=== PATIENT | male | born 1985 | race Caucasian/White ===

== ENCOUNTER → 2021-07-08 08:09 | Outpatient (CLI) | payer OTHER, SELFPAY ==
[2021-07-08 08:22] LABS: Coronavirus 19, PCR Not Detected (NotDetected); Influenza A, PCR Not Detected (NotDetected); Influenza B, PCR Not Detected (NotDetected)
== END ==
PROVIDERS: PCP Physician Assistant; Visit Provider Nurse Practitioner
DX: Z20.822 Contact with and (suspected) exposure to COVID-19 (principal)
CPT/HCPCS: C9803; U0003; U0005

== ENCOUNTER → 2021-09-21 12:32 | Outpatient (CLI) | payer OTHER, SELFPAY ==
[2021-09-21 13:21] LABS: Coronavirus 19, PCR Not Detected (NotDetected); Influenza A, PCR Not Detected (NotDetected); Influenza B, PCR Not Detected (NotDetected)
== END ==
PROVIDERS: PCP Physician Assistant; Visit Provider Nurse Practitioner
DX: Z20.822 Contact with and (suspected) exposure to COVID-19 (principal)
CPT/HCPCS: C9803; U0003; U0005

== ENCOUNTER 2022-01-06 21:33 | Emergency (ER) | payer OTHER, SELFPAY ==
[2022-01-06 21:34] VITALS: BP 115/81; PULSE 118; RESP 18; TEMP 36.7; O2SAT 99; BMI 25.7
[2022-01-06 22:00] VITALS: BP 124/77; PULSE 110; O2SAT 95
--- NOTE | 2022-01-06 22:10 | ECG_ITS ---
APPROVED REPORT Exam: Resting ECG HR:112 bpm ECG Measurements Heart Rate 112 AXES DC 152 P 67 QRSd 102 QRS 95 QT 327 T 16 QTc 393 Conclusion SINUS TACHYCARDIA BORDERLINE RIGHT AXIS DEVIATION [QRS AXIS > 90] INCOMPLETE RIGHT BUNDLE BRANCH BLOCK [90+ ms QRS DURATION, TERMINAL R IN V1/V2, 40+ ms S IN I/aVL/V4/V5/V6] POSSIBLE INFERIOR MYOCARDIAL INFARCTION , PROBABLY OLD [30 ms Q WAVE IN II/aVF] ABNORMAL RHYTHM ECG UNCONFIRMED REPORT Electronically signed by : Abhijit Pickens MD 01/07/2022 19:38:11
[2022-01-06 22:21] LABS: Adenovirus F 40/41, stool Not Detected (NotDetected); Astrovirus Not Detected (NotDetected); Campylobacter Not Detected (NotDetected); Clostridium Difficile A/B, PCR Not Detected (NotDetected); Cryptosporidium Not Detected (NotDetected); Cyclospora Cayetanesis Not Detected (NotDetected); Entamoeba histolytica Not Detected (NotDetected); Enteroaggregative E coli Not Detected (NotDetected); Enteropathogenic E coli Not Detected (NotDetected); Enterotoxigenic E coli Not Detected (NotDetected); Giardia lamblia Not Detected (NotDetected); Norovirus Not Detected (NotDetected); Plesimonas Shigalloides, PCR Not Detected (NotDetected); Salmonella, PCR Not Detected (NotDetected); Sapovirus Not Detected (NotDetected); Shiga-like toxin E coli Not Detected (NotDetected); Shigella Enterovasive E coli Not Detected (NotDetected); Vibrio Cholerae Not Detected (NotDetected); Vibrio, PCR Not Detected (NotDetected); Yersinia Entercolitica, PCR Not Detected (NotDetected)
[2022-01-06 22:31] LABS: Basophils # 0.1 K/mm3 (0-0.2); Basophils % 0.9 % (0.1-2.0); Eosinophils # 0.1 K/mm3 (0.0-0.4); Eosinophils % 0.8 % (0.1-12.0); Hematocrit 53.7 % (42.0-52.0); Hemoglobin 17.5 g/dL (14.1-18.0); Lymphocytes # 0.4 K/mm3 (0.7-4.5); Lymphocytes % 4.6 % (10-50); Mean Corpuscular HGB Conc 32.5 g/dL (31.8-35.4); Mean Corpuscular Hemoglobin 29.2 pg (27.0-31.2); Mean Corpuscular Volume 89.6 fl (80-94); Mean Platelet Volume 7.2 fl (7.4-10.4); Monocytes # 0.4 K/mm3 (0.1-1.0); Monocytes % 5.4 % (1.7-9.3); Neutrophils # 7.1 K/mm3 (1.8-7.8); Neutrophils % 88.3 % (37.0-80.0); Platelet Count 229 K/mm3 (142-424); Red Blood Count 5.99 M/mm3 (4.60-6.20); Red Cell Distribution Width 13.7 % (11.5-17.5)
[2022-01-06 22:38] LABS: Chloride 106 mmol/L (98-107); Potassium 3.7 mmoL/L (3.5-5.1); Sodium 137 mmol/L (136-145)
[2022-01-06 22:40] LABS: Amylase 48 U/L (30-110)
[2022-01-06 22:41] LABS: Alanine Aminotransferase 44 U/L (12-78); Albumin Level 4.3 g/dl (3.5-5.0); Albumin/Globulin Ratio 1.4 (1.1-1.8); Alkaline Phosphatase 51 U/L (38-126); Anion Gap 12.7 mEq/L (5-15); Aspartate Amino Transferase 35 U/L (17-59); Bilirubin,Total 0.8 mg/dl (0.2-1.3); Blood Urea Nitrogen 15 mg/dl (9-20); Calcium 8.1 mg/dl (8.4-10.2); Carbon Dioxide 22 mmol/L (22.0-30.0); Creatinine Clearance Estimated 129 mL/min (50-200); Estimated Glomerular Filt Rate 84 ml/min (>60); GFR (African American) 101 ML/MIN (>60); Glucose 130 mg/dl (74-100); Lipase 31 U/L (23-300); Total Protein,Serum 7.3 g/dl (6.3-8.2)
[2022-01-06 22:46] LABS: MANUAL DIFFERENTIAL MANUAL DIFFERENTIAL (MANUAL DIFF)
[2022-01-06 22:47] LABS: C-Reactive Protein 63.3 mg/L (0-4)
[2022-01-06 23:00] LABS: Procalcitonin 0.963 ng/mL (0.0-2.0)
[2022-01-06 23:09] LABS: Troponin I < 0.01 ng/ml (0.00-0.034)
--- NOTE | 2022-01-06 23:11 | HMH.EDNVD ---
ED Disposition Clinical Impression: Enteritis Disposition: Home, Self-Care Condition on Discharge: Good Instructions: DI for Diarrhea and Traveler's Diarrhea -- Adult Additional Instructions: fluids and see pcp for follow up Prescriptions: Ondansetron [Zofran 4mg ODT] 4 mg PO TIDP PRN #15 tab PRN Reason: Nausea And Vomiting Transmission Status: Pending to [id number] Referrals: Aster Silva PA [Primary Care Provider] - - Critical Care Critical Care Time: No Attestation: On 01/06/22, the high probability of a clinically significant, sudden or life threatening deterioration of the following system(s) required my full and direct attention, intervention and personal management. The time I documented below is in addition to time spent performing reported procedures but includes the following listed in this critical care notation. Medical Decision Making - Medical Records Medical records reviewed: Yes: I reviewed the patient's medical records. - Neo Inquiry Pt receiving controlled substance: No Vital Signs: 01/06/22 21:34 01/06/22 22:00 01/06/22 23:19 Temperature 98.0 F Temperature Source Oral Pulse Rate 110 H 96 H Pulse Rate [Apical] 118 H Respiratory Rate 18 Blood Pressure 124/77 112/65 Blood Pressure [Right Arm] 115/81 Blood Pressure Mean [Right Arm] 92 Blood Pressure Source [Right Arm] Automatic Cuff Blood Pressure Position [Right Arm] Sitting 02 Sat by Pulse Oximetry 99 95 97 Oxygen Delivery Method Room Air Room Air Room Air - Lab Data Lab results reviewed: Yes: I reviewed the patient's lab results. Lab Results 01/06/22 22:24: WBC 8.0, RBC 5.99, Hgb 17.5, Hct 53.7 H, MCV 89.6, MCH 29.2, MCHC 32.5, RDW 13.7, Plt Count 229, MPV 7.2 L, Neut % (Auto) 88.3 H, Lymph % (Auto) 4.6 L, [place] % (Auto) 5.4, Eos % (Auto) 0.8, Baso % (Auto) 0.9, Neut # (Auto) 7.1, Lymph # (Auto) 0.4 L, [place] # (Auto) 0.4, Eos # (Auto) 0.1, Baso # (Auto) 0.1, ESR 1 01/06/22 22:24: Sodium 137, Potassium 3.7, Chloride 106, Carbon Dioxide 22, Anion Gap 12.7, BUN 15, Creatinine 1.00, Estimated Creat Clear 129, Estimated GFR 84, Est GFR ( Amer) 101, Glucose 130 H, Calcium 8.1 L, Total Bilirubin 0.8, AST 35, ALT 44, Alkaline Phosphatase 51, Troponin I < 0.01, C-Reactive Protein 63.3 H, Total Protein 7.3, Albumin 4.3, Globulin 3.0, Albumin/Globulin Ratio 1.4, Amylase 48, Lipase 31, Procalcitonin 0.963 Result diagrams: 01/06/22 22:24 01/06/22 22:24 Orders (Tests/Meds): ED MEDICATIONS Generic Name Dose Route Start Last Admin Trade Name Freq PRN Reason Stop Dose Admin Sodium Chloride 1,000 mls @ 999 mls/hr 01/06/22 22:15 01/06/22 22:28 Sod Chlor 0.9% 1000ml Bag IV 01/06/22 23:15 999 mls/hr .Q1H1M CLAUDY Administration Discontinued Medications Generic Name Dose Route Start Last Admin Trade Name Freq PRN Reason Stop Dose Admin Ondansetron HCl 4 mg 01/06/22 22:14 01/06/22 22:27 Ondansetron 4mg/2ml Vial IV 01/06/22 22:15 4 mg ONCE ONE Administration ORDERS Category Date Time Status Complete Blood Count Auto Diff Stat Lab 01/06/22 22:24 Results Diarrhea 23 Panel, PCR Stat Lab 01/06/22 22:15 Received Erythrocyte Sedimentation Rate Stat Lab 01/06/22 22:24 Results Troponin I Q3H Lab 01/07/22 01:15 Ordered Troponin I Q3H Lab 01/07/22 04:15 Ordered Medical Decision Narrative: has enteritis with vasovagal episode with stable exam and labs and feels better after ivf Nausea/Vomiting/Diarrhea HPI - General Chief complaint: Nausea/Vomiting/Diarrhea Stated complaint: STOMACH BUG WEAKNESS Time Seen by Provider: 01/06/22 22:00 Mode of Arrival: Ambulatory Source of Information: Patient, Spouse, Medical Record Limitations: No Limitations Description of Symptoms (Recalled from ER Triage Doc. by RN): Patient states that he has had diarrhea for the last two days and nausea. Denies vomiting. States that he was using the restroom at roughly 2000 wh
[2022-01-06 23:13] LABS: Erythrocyte Sedimentation Rate 1 mm/hr (0-15)
[2022-01-06 23:19] VITALS: BP 112/65; PULSE 96; O2SAT 97
[2022-01-06 23:37] VITALS: BP 112/65; PULSE 96; RESP 18; TEMP 36.8; O2SAT 99
[2022-01-07 00:17] LABS: Hypochromasia 1+; Lymphocytes % 11 % (10-50); Monocytes % 4 % (2-9); Neutrophils % 85 % (42-76); Platelet Estimate Normal; Total Cells Counted 100
[2022-01-07 00:45] LABS: Rotavirus A Detected (NotDetected)
== END 2022-01-06 23:46 | disposition home or self-care (01) ==
PROVIDERS: Emergency Provider Emergency Medicine; PCP Physician Assistant
DX: R19.7 Diarrhea, unspecified (principal); R11.2 Nausea with vomiting, unspecified; Z79.52 Long term (current) use of systemic steroids; Z79.899 Other long term (current) drug therapy
CPT/HCPCS: 80053; 82150; 83690; 84145; 84484; 85007; 85025; 85651; 86140; 87507; 93005; 96361; 96365; 96374; 96375; 99285; J2405

== ENCOUNTER → 2022-05-06 06:23 | Outpatient (CLI) | payer OTHER, SELFPAY ==
[2022-05-05 17:39] LABS: Basophils # 0.1 K/mm3 (0-0.2); Basophils % 0.8 % (0.1-2.0); Eosinophils # 0.1 K/mm3 (0.0-0.4); Eosinophils % 2.3 % (0.1-12.0); Hematocrit 47.9 % (42.0-52.0); Hemoglobin 16.6 g/dL (14.1-18.0); Lymphocytes # 1.7 K/mm3 (0.7-4.5); Lymphocytes % 28.5 % (10-50); Mean Corpuscular HGB Conc 34.6 g/dL (31.8-35.4); Mean Corpuscular Hemoglobin 28.7 pg (27.0-31.2); Mean Corpuscular Volume 83.1 fl (80-94); Mean Platelet Volume 7.7 fl (7.4-10.4); Monocytes # 0.6 K/mm3 (0.1-1.0); Monocytes % 9.7 % (1.7-9.3); Neutrophils # 3.6 K/mm3 (1.8-7.8); Neutrophils % 58.7 % (37.0-80.0); Platelet Count 258 K/mm3 (142-424); Red Blood Count 5.77 M/mm3 (4.60-6.20); Red Cell Distribution Width 13.2 % (11.5-17.5); White Blood Count 6.1 K/mm3 (4.8-10.8)
[2022-05-05 18:32] LABS: Chloride 104 mmol/L (98-107)
[2022-05-05 18:34] LABS: Amylase 52 U/L (30-110); Blood Urea Nitrogen 15 mg/dl (9-20); Estimated Glomerular Filt Rate 94 ml/min (>60); GFR (African American) 114 ML/MIN (>60); Sodium 138 mmol/L (136-145)
[2022-05-05 18:35] LABS: Alanine Aminotransferase 40 U/L (12-78); Alkaline Phosphatase 60 U/L (38-126); Aspartate Amino Transferase 34 U/L (17-59); Bilirubin,Total 0.5 mg/dl (0.2-1.3); Calcium 10.1 mg/dl (8.4-10.2); Carbon Dioxide 24 mmol/L (22.0-30.0); Glucose 107 mg/dl (74-100); HDL Cholesterol 40 mg/dl (40-60); Lipase 71 U/L (23-300)
[2022-05-05 18:37] LABS: Albumin Level 4.9 g/dl (3.5-5.0); Albumin/Globulin Ratio 1.6 (1.1-1.8); Chol/HDL Ratio 5.5 (1-3.5); Cholesterol 218 mg/dl (140-200); Globulin 3.1 g/dL (1.3-3.2); Triglycerides 214 mg/dl (30-150); VLDL Cholesterol 43 mg/dL (0-40)
[2022-05-05 18:46] LABS: Direct LDL Cholesterol 124.76 mg/dL (100-129)
[2022-05-05 19:06] LABS: Thyroid Stimulating Hormone 1.07 uIU/mL (0.465-4.68)
[2022-05-05 19:34] LABS: 25-OH Vitamin D, Total 32.4 ng/mL (30-100)
[2022-05-06 10:27] LABS: Hemoglobin A1C 5.3 % (4.0-6.0)
== END ==
PROVIDERS: PCP Physician Assistant; Visit Provider Physician Assistant
DX: Z00.00 Encounter for general adult medical examination without abnormal findings (principal); R73.9 Hyperglycemia, unspecified; E66.3 Overweight; J02.9 Acute pharyngitis, unspecified; Z68.27 Body mass index [BMI] 27.0-27.9, adult
CPT/HCPCS: 80053; 80061; 82150; 82306; 83036; 83690; 84443; 85025

== ENCOUNTER 2022-08-18 18:02 | Emergency (ER) | payer OTHER, SELFPAY ==
[2022-08-18 19:45] VITALS: BP 124/90; PULSE 99; RESP 18; TEMP 37.3; O2SAT 98; BMI 28.2
--- NOTE | 2022-08-18 19:50 | EXP.UTC ---
Discharge Plan Disposition Patient Disposition: Home, Self-Care Condition: Good Prescriptions Prescriptions: New cefdinir 300 mg capsule 300 mg PO BID 7 Days Qty: 14 0RF methylprednisolone [Medrol (Carlos)] 4 mg tablets,dose pack See Rx Instructions .Route .COMPLEX 6 Days Qty: 21 0RF Rx Instructions: taper pack; eikjtemyyeinnzg-rhkwasvgm-DI [Bromfed DM] 2-30-10 mg/5 mL Syrup 10 ml PO Q4H PRN (Reason: Cough) Qty: 240 0RF Referrals Follow up/Referrals: Aster Silva PA [Primary Care Provider] - See instructions Activity Restrictions/Add. Instructions Additional Instructions/Restrictions: *Monitor Temp, Over the counter Motrin or Tylenol as directed/as needed Tylenol every 4 hours and Motrin every 6 hours (as long as your family doctor has told you that you can take it) for fever or pain. and straight to ER if unable to lower temp less than 101.0 after medication given *Warm salt water gargles may help to soothe the throat *Throat Lozenges? *Warm fluids like tea with honey may help to soothe the throat? *Sleep elevated *Humidifier/Vaporizer *Bromfed may cause drowsiness. Know how it effects you (your child) before driving, caring for small child, or sending your child to school. Not other antihistamines/allergy medications while taking bromfed Your throat swab was sent for culture. Those results are typically sent to your primary care. Be sure to follow up in 2-3 days with your family doctor/primary care physician if no improvement so they can review those result and treat if necessary. If you don?t have a primary care doctor, I recommend you get one but in the mean time, you will have to return to a walk in clinic Follow up IMMEDIATELY for new or worsening symptoms or no Noticeable improvement over the next 48-72 hours. 911 for difficulty breathing or swallowing You were tested for today for COVID19 your test result should be back in the next 24-48 hours, you may check your results on the [facility] [facility] Portal Clinical Impressions Clinical Impression: Otitis media Qualifiers: Otitis media type: unspecified Laterality: left Qualified Code(s): H66.92 - Otitis media, unspecified, left ear Stand Alone Forms Stand Alone Forms: Work/School Release Instructions Patient Instructions: Middle Ear Infection Discharge ED Provider: Martha Tse [facility] [place] General Stated complaint: fever, bodyaches Time Seen by Provider: 08/18/22 19:50 Description of Symptoms (Recalled from Triage Doc. by RN): Patient states that hasnt been feeling well since Monday States that he has been having cough, fever, body aches, chills and head congestion States that tonight he was feeling worse so he came in to get checked out Related Data Previous Rx's Medication Instructions Recorded iscmkvokzljkwhg-tgtlipcbziouqga-ZN 10 ml PO Q4H PRN Cough #240 mL 08/18/22 2 mg-30 mg-10 mg/5 mL oral syrup (Bromfed DM) cefdinir 300 mg capsule 300 mg PO BID 7 days #14 caps 08/18/22 methylprednisolone 4 mg tablets in See Rx Instructions .Route 08/18/22 a dose pack (Medrol (Carlos)) .COMPLEX 6 days #21 tabs Allergies Allergy/AdvReac Type Severity Reaction Status Date / Time No Known Allergies Allergy Verified 05/05/22 13:28 [facility] Medical History (Updated 08/18/22 @ 20:04 by Martha Tse, [employer]) No significant past medical history Social History (Updated 08/18/22 @ 19:57 by Aishwarya Allred RN) Smoking Status: Never smoker alcohol intake: current substance use type: denies use current occupational status: employed Travel in the last 8 weeks: None housing: house ROS Obtained: Yes All systems reviewed & no additional complaints except as documented and Yes Systems reviewed as appropriate & no additional complaints except as documented Constitutional Constitutional: Reports system reviewed and no additional complaints, except as documented, Reports as per HPI, Reports frances
[2022-08-18 19:56] LABS: UTC Influenza A Antigen Negative (Negative); UTC Influenza B Antigen Negative (Negative)
[2022-08-18 20:05] LABS: Adenovirus,PCR Not Detected (NotDetected); Bordetella Pertussis Not Detected (NotDetected); Chlamydophila Pneumoniae, PCR Not Detected (NotDetected); Coronavirus 19, PCR Not Detected (NotDetected); Coronavirus 229E Not Detected (NotDetected); Coronavirus OC43 Not Detected (NotDetected); Coronovirus HKU1,PCR Not Detected (NotDetected); Human Metapneumovirus Not Detected (NotDetected); Influenza A, PCR Not Detected (NotDetected); Influenza AH1, 2009 Not Detected (NotDetected); Influenza AH1, PCR Not Detected (NotDetected); Influenza AH3,PCR Not Detected (NotDetected); Influenza B, PCR Not Detected (NotDetected); Mycoplasma Pneumoniae, PCR Not Detected (NotDetected); Parainfluenza 1, PCR Not Detected (NotDetected); Parainfluenza 2, PCR Not Detected (NotDetected); Parainfluenza 3, PCR Not Detected (NotDetected); Parainfluenza 4, PCR Not Detected (NotDetected); Respiratory Syncytial Virus Not Detected (NotDetected); Rhinovirus/Enterovirus Not Detected (NotDetected)
[2022-08-18 20:30] VITALS: BP 124/90; PULSE 99; RESP 18; TEMP 37.3; O2SAT 98
[2022-08-19 01:26] LABS: Coronavirus NL63 Detected (NotDetected)
== END 2022-08-18 20:34 | disposition home or self-care (01) ==
PROVIDERS: Emergency Provider Nurse Practitioner; PCP Physician Assistant
DX: H66.92 Otitis media, unspecified, left ear (principal)
CPT/HCPCS: 87581; 87632; 87798; 87804; 96372; 99212; 99282; C9803; G0463; J0696; U0003; U0005

== ENCOUNTER → 2023-06-27 12:41 | Outpatient (CLI) | payer OTHER, SELFPAY ==
[2023-06-27 14:14] LABS: Chol/HDL Ratio 4.7 (1-3.5); Cholesterol 216 mg/dl (140-200); HDL Cholesterol 46 mg/dl (40-60); Triglycerides 204 mg/dl (30-150); VLDL Cholesterol 41 mg/dL (0-40)
[2023-06-27 14:25] LABS: Direct LDL Cholesterol 118.73 mg/dL (100-129)
== END ==
PROVIDERS: PCP Physician Assistant; Visit Provider Physician Assistant
DX: Z13.220 Encounter for screening for lipoid disorders (principal)
CPT/HCPCS: 80061